=== PATIENT | female | born 1970 | race Caucasian/White ===

== ENCOUNTER → 2018-02-05 | Outpatient (CLI) | payer OTHER | LOC: BMCIMAGING 15:20 | PROVIDERS: ATTEND Orthopaedic Surgery | DX: R22.41 Localized swelling, mass and lump, right lower limb (principal); M71.21 Synovial cyst of popliteal space [Baker], right knee ==

== ENCOUNTER 2018-05-23 12:05 | Emergency (ER) | payer OTHER ==
--- NOTE | 2018-05-23 12:54 | EDPHY ---
H & P Stated Complaint: nontraumtic swelling r knee has surg scheduled for 06/04 Time Seen by Provider: 05/23/18 12:54 HPI/ROS: CHIEF COMPLAINT: Right knee pain HISTORY OF PRESENT ILLNESS: The patient presents to the ED with complaints of right knee pain and a painful effusion. The patient has a history of early osteoarthritis and is scheduled to get knee replacement done on June 04. The patient's symptoms began simply after walking today. The patient denies any fever. The pain is unrelieved with Advil and Motrin. REVIEW OF SYSTEMS: A comprehensive 10 point review of systems is otherwise negative aside from elements mentioned in the history of present illness. Source: Patient - Personal History LMP (Females 10-55): Post Menopausal Current Tetanus Diphtheria and Acellular Pertussis (TDAP): Yes - Medical/Surgical History Hx Asthma: No Hx Chronic Respiratory Disease: No Hx Diabetes: No Hx Cardiac Disease: No Hx Renal Disease: No Hx Cirrhosis: No Hx Alcoholism: No Hx HIV/AIDS: No Hx Splenectomy or Spleen Trauma: No Other PMH: PMH: Bulging disk c6-7, thyroid, anxiety/r knee pain - Social History Smoking Status: Never smoked - Physical Exam Exam: General Appearance: Alert, no distress Eyes: Pupils equal and round no pallor or injection ENT, Mouth: Mucous membranes moist Respiratory: There are no retractions, lungs are clear to auscultation Cardiovascular: Regular rate and rhythm Gastrointestinal: Abdomen is soft and nontender, no masses, bowel sounds normal Neurological: 5/5 strength all 4 extremities Skin: Warm and dry, no rashes Musculoskeletal: Neck is supple nontender Extremities: Suprapatella bursa effusion Constitutional: Initial Vital Signs Temperature (C) 36.4 C 05/23/18 12:18 Heart Rate 66 05/23/18 12:18 Respiratory Rate 18 05/23/18 12:18 Blood Pressure 109/83 H 05/23/18 12:18 O2 Sat (%) 98 05/23/18 12:18 O2 Delivery Mode Room Air Allergies/Adverse Reactions: No Known Allergies Allergy (Verified 05/23/18 12:18) Home Medications: Medication Instructions Recorded Acetaminophen [Tylenol ES 500 mg 1,000 mg PO BID 05/17/18 (*)] Ibuprofen [Motrin (*)] 800 mg PO BID 05/17/18 Levothyroxine [Synthroid 88 mcg 88 mcg PO DAILY06 05/17/18 (*)] Medical Decision Making Procedures: Procedure: Suprapatellar bursa aspiration and Marcaine infusion Under sterile conditions the right knee was prepped and draped. Local anesthesia was provided using lidocaine with epinephrine. A 18 gauge needle was used to aspirate the bursa. The bursa aspirate was bloody. It was sent for culture. 5 cc of 1% Marcaine without epinephrine was then injected into the space. The patient had immediate improvement of her pain. An Gera wrap is been applied. ED Course/Re-evaluation: The patient presents to the ED with a symptomatic effusion involving her right suprapatellar bursa. She is scheduled to undergo knee arthroplasty on June 04. I did curbside her orthopedic surgeon Dr. Kash Teixeira. The patient did have a therapeutic aspiration of her suprapatellar bursa. It was bloody. It has been sent for culture. The patient's suprapatellar bursa and intra-articular space were injected with Marcaine. Procedure was performed under sterile conditions. - Data Points Medications Given: Discontinued Medications Oxycodone/Acetaminophen (Percocet 5/325) 2 tab PO EDNOW ONE Stop: 05/23/18 13:19 Last Admin: 05/23/18 13:21 Dose: 2 tab Departure - Departure Disposition: Home, Routine, Self-Care Clinical Impression: Suprapatellar bursitis of right knee Condition: Good Instructions: Knee Bursitis (ED) Additional Instructions: 1. Follow up with Dr. Kash Teixeira as scheduled. 2. Continue Tylenol and ibuprofen for pain management. 3. Return to the ED for any severe pain, worsening symptoms or other concerns. 4. Wear Gera wrap for next 2 days. Referrals: MIGEL COURTNEY SMELTER OPERATOR [Primary Care Provider] - As per Instructions
[2018-05-23] MEDS ORDERED: OXYCODONE/APAP 5/325 TAB PO ONE (13:18)
[2018-05-23 14:10] VITALS: BP 112/85
== END 2018-05-23 14:43 | disposition home or self-care (01) ==
DX: M70.51 Other bursitis of knee, right knee (principal)

== ENCOUNTER 2018-06-04 07:57 | Observation (INO) | payer OTHER ==
--- NOTE | 2018-06-03 13:57 | GHP ---
DATE OF ADMISSION: 06/04/2018 HISTORY: The patient is a 47-year-old female who presents with right knee tricompartment arthritis. The knee has a complex history. She has had a previous patellar tendon autograft ACL reconstruction of the knee that failed. She has had a few knee scopes. By arthroscopic inspection and MRI, she chaney s severe tricompartment arthritis at this point, grade 3-4 medially and grade 2-3 in the other compar tments. She has pain, swelling, abnormalities of her gait, limitations of activities of daily living and certainly any athletic activity. She also has been prone to recurrent knee hemarthrosis. She h as in addition had multiple conservative measures, including bracing, modification of her activities, medications, including ointments, viscosupplementation, as well as bracing. Though she is aware leo t this is a relatively young age for a knee replacement, it is her best option in terms of quality of life and management of her function and comfort. She would like to proceed with a right total knee arthroplasty. PAST MEDICAL HISTORY: Remarkable for hypothyroid for which she uses levothyroxine 88 mcg daily. She also was using a Voltaren topical NSAID. She does have a history of lower extremity blood clot for which she was briefly anticoagulated years ago. PAST SURGICAL HISTORY: Her surgical history, includes the right ACL back in 1993. She has had right knee scope, right hip procedures, as well as a left knee scope. ALLERGIES: She has no known drug allergies. SOCIAL HISTORY: She is a nonsmoker. REVIEW OF SYSTEMS: Positive for hypothyroid. Also positive for lower extremity blood clot without p ulmonary embolus. PHYSICAL EXAM: GENERAL: The patient is a well-developed, well-nourished female in no apparent distr ess. HEAD: Normocephalic, atraumatic. CHEST: Clear. CARDIOVASCULAR: Regular rate and rhythm. A BDOMEN: Soft. NEUROLOGIC: She is alert and oriented x3. EXTREMITIES: Examination of the right kn ee shows a slight flexion contracture, she is bending to about 100 degrees. She has varus malalignme nt. She has ligamentous laxity, including ACL and pseudolaxity medially. She has joint line tendern ess throughout. Her skin is intact. Her neurovascular exam is intact. IMAGING: X-rays show tricompartment arthritis with decreased joint space, degenerative lipping. She is in varus malalignment and the majority of her arthritis is the medial compartment. She does have retained hardware including a metallic screw in the tibia and femur for previous ACL. IMPRESSION: Right knee tricompartment osteoarthritis. PLAN: Right total knee arthroplasty. Benefits and risks of surgery been reviewed. She understands that these risks, include infection, damage to blood vessel or nerve, failure or loosening of compone nts and need for revision, blood clot in the leg or lungs, bleeding and need for transfusion. She chaney s signed a consent form and she wishes to proceed. /[id number]/MODL
[~2018-06-04 07:57] MED LIST: POVIDONE-IODINE 20 ML in SODIUM CL IRRIG SOLUTION 500 ML IRR ONE; ROPIVACAINE 0.2% 80 MG, EPINEPHrine 0.2 MG, KETOROLAC TROMETHAMINE 30 MG in SYRINGE 0 ML IU ONE; TRANEXAMIC ACID 1,000 MG in NS 100 ML IV ONE
[2018-06-04] MEDS ORDERED: DEXAMETHASONE 4 MG/ML VIAL IVP ONE (08:07)
[2018-06-04] MEDS ORDERED: FAMOTIDINE 20 MG TAB PO ONE (08:07)
[2018-06-04] MEDS ORDERED: ACETAMINOPHEN 325 MG TAB PO ONE (08:07)
[2018-06-04] MEDS ORDERED: GABAPENTIN 300 MG CAP PO ONE (08:07)
[2018-06-04] MEDS ORDERED: ONDANSETRON 4 MG/2 ML VIAL IVP ONE (08:07)
[2018-06-04] MEDS ORDERED: ceFAZolin 2 GM/DEXTROSE 100 ML IV ONE (08:07)
[2018-06-04] MEDS ORDERED: LR 1,000 ML IV ONE (08:12)
[2018-06-04] MEDS ORDERED: ceFAZolin 1 GM/5 ML SYR ONE ×2 (09:36→09:48)
--- NOTE | 2018-06-04 09:44 | PDANEPAE ---
ANE History of Present Illness OA here for R TKA ANE Past Medical History - Cardiovascular History Hx Hypertension: No Hx Arrhythmias: No Hx Chest Pain: No Hx Coronary Artery / Peripheral Vascular Disease: No Hx CHF / Valvular Disease: No Hx Palpitations: No - Pulmonary History Hx COPD: No Hx Asthma/Reactive Airway Disease: No Hx Recent Upper Respiratory Infection: No Hx Oxygen in Use at Home: No Hx Sleep Apnea: No Sleep Apnea Screening Result - Last Documented: Negative - Neurologic History Hx Cerebrovascular Accident: No Hx Seizures: No Hx Dementia: No - Endocrine History Hx Diabetes: No Endocrine History Comment: hypothyroid - Renal History Hx Renal Disorders: No - Liver History Hx Hepatic Disorders: No - Neurological & Psychiatric Hx Hx Neurological and Psychiatric Disorders: Yes Neurological / Psychiatric History Comment: mild anxiety - Cancer History Hx Cancer: No - Congenital Disorder History Hx Congenital Disorders: No - GI History Hx Gastrointestinal Disorders: No - Other Health History Other Health History: dermatitis on face - Chronic Pain History Chronic Pain: Yes (knees) - Surgical History Prior Surgeries: right knee scopes, ACL replacement. left knee microfracture. right hip labral tear repair ANE Review of Systems Review of Systems: - Exercise capacity METS (RN): 6 METS ANE Patient History - Allergies Allergies/Adverse Reactions: No Known Allergies Allergy (Verified 05/23/18 12:18) - Home Medications Home Medications: Acetaminophen [Tylenol ES 500 mg (*)] 1,000 mg PO BID 05/17/18 [Last Taken 06/04 04:00] Ibuprofen [Motrin (*)] 800 mg PO BID 05/17/18 [Last Taken 05/24/18] Levothyroxine [Synthroid 88 mcg (*)] 88 mcg PO DAILY06 05/17/18 [Last Taken 04:00] - NPO status NPO Status: no food or drink >8 hours NPO Since - Liquids (Date): 06/04/18 NPO Since - Liquids (Time): 05:30 NPO Since - Solids (Date): 06/03/18 NPO Since - Solids (Time): 19:00 - Anes Hx Anes Hx: no prior problems - Smoking Hx Smoking Status: Never smoked - Alcohol Use Alcohol Use: Rarely - Family Anes Hx Family Anes Hx: none Family Hx Anesthesia Complications: none ANE Labs/Vital Signs - Vital Signs Vital Signs: reviewed preoperatively; see RN documention for details Blood Pressure: 103/67 Heart Rate: 50 Respiratory Rate: 14 O2 Sat (%): 94 Height: 165.1 cm Weight: 54.431 kg ANE Physical Exam - Airway Neck exam: FROM Mallampati Score: Class 2 Mouth exam: normal dental/mouth exam - Pulmonary Pulmonary: no respiratory distress, clear to auscultation - Cardiovascular Cardiovascular: regular rate and rhythym, no murmur, rub, or gallop - ASA Status ASA Status: II ANE Anesthesia Plan Anesthesia Plan: GA with mask, spinal Regional Anesthesia: single shot NB, adductor canal FNB Total IV Anesthesia: Yes
[2018-06-04] MEDS ORDERED: MIDAZOLAM 2 MG/2 ML VIAL IVP ONE (09:45)
[2018-06-04] MEDS ORDERED: MIDAZOLAM 2 MG/2 ML VIAL ONE (09:49)
[2018-06-04] MEDS ORDERED: PROPOFOL/EMULSION 500 MG/50 ML BOTTLE IV ONE ×2 (09:51→10:38)
[2018-06-04] MEDS ORDERED: fentaNYL 100 MCG/2 ML INJ IVP PRN ×2 (12:09→15:28)
[2018-06-04] MEDS ORDERED: oxyCODONE IR 5 MG TAB PO PRN ×3 (12:09→15:28)
[2018-06-04] MEDS ORDERED: NALOXONE HCL 0.4 MG/ML INJ IVP PRN ×2 (12:09→15:28)
[2018-06-04] MEDS ORDERED: ONDANSETRON 4 MG/2 ML VIAL IVP PRN ×3 (12:09→15:28)
[2018-06-04] MEDS ORDERED: HYDROmorphONE/DILAUDID 2 MG/ML INJ IVP PRN ×2 (12:09→15:28)
[2018-06-04] MEDS ORDERED: ACETAMINOPHEN 500 MG TAB PO PRN ×2 (12:09→15:28)
[2018-06-04] MEDS ORDERED: HYDROCODONE/APAP 5/325 TAB PO PRN ×2 (12:09→15:28)
--- NOTE | 2018-06-04 12:12 | PDHPUP ---
History & Physical Update H&P update statement: This history and physical update is based on an assessment of the patient which was completed after admission or registration (within 24 hours), but prior to the surgery/procedure. H&P update: no change in patient's condition since H&P completed (no change)
--- NOTE | 2018-06-04 12:19 | POSTANESTH ---
Post Anesthetic Evaluation Cardiovascular Status: Normal, Stable, Similar to Pre-Op Cond Respiratory Status: Normal, Stable, Similar to Pre-op Cond. Level of Consciousness/Mental Status: Can Participate in Eval, Alert and Oriented Pain Control: Adequate, Prn Tx Ordered Nausea/Vomiting Control: Adequate, Prn Tx Ordered Complications Possibly Related to Anesthesia: None Noted
[2018-06-04] MEDS ORDERED: ONDANSETRON DISINTEGRATING 4 MG TAB PO PRN (12:20)
[2018-06-04] MEDS ORDERED: METOCLOPRAMIDE 10 MG/2 ML VIAL IVP PRN (12:20)
[2018-06-04] MEDS ORDERED: DIPHENOXYLATE/ATROPINE LOMOTIL 1 TAB PO PRN (12:20)
[2018-06-04] MEDS ORDERED: BISACODYL 10 MG SUPP PR PRN (12:20)
[2018-06-04] MEDS ORDERED: POLYETHYLENE GLYCOL 3350 17 GM PKT PO PRN (12:20)
[2018-06-04] MEDS ORDERED: LACTULOSE 20 GM/30 ML UDCUP PO PRN (12:20)
[2018-06-04] MEDS ORDERED: CYCLOBENZAPRINE 10 MG TAB PO PRN (12:20)
[2018-06-04] MEDS ORDERED: MAGNESIUM HYDROXIDE 30 ML UDCUP PO PRN (12:20)
[2018-06-04] MEDS ORDERED: PROMETHAZINE HCL 25 MG SUPPR PR PRN (12:20)
[2018-06-04] MEDS ORDERED: diphenhydrAMINE 25 MG CAP PO PRN (12:20)
[2018-06-04] MEDS ORDERED: KETOROLAC 15 MG/1 ML SDV IVP ONE (12:20)
[2018-06-04] MEDS ORDERED: PROMETHAZINE HCL 25 MG/ML INJ IVP PRN ×2 (12:20→15:28)
[2018-06-04] MEDS ORDERED: TEMAZEPAM 15 MG CAP PO PRN (12:20)
[2018-06-04] MEDS ORDERED: LR 1,000 ML IV SCH (12:30)
--- NOTE | 2018-06-04 12:55 | GOP ---
DATE OF OPERATION: 06/04/2018 SURGEON: Kash Teixeira MD INTEGRATED MARKETING MANAGER: Rory Crouch, MIKE, LSA. ANESTHESIOLOGIST: Dr. Luis Farooq PREOPERATIVE DIAGNOSIS: Right knee osteoarthritis. POSTOPERATIVE DIAGNOSIS: Right knee osteoarthritis. PROCEDURE PERFORMED: Right total knee arthroplasty. FINDINGS: INDICATIONS: The patient is a 47-year-old female with complex right knee history including previous ACL injury and reconstruction, failure of that graft, a number of arthroscopies, her knee has advance d unfortunately into severe tricompartment osteoarthritis. She has had viscosupplementation, she has had day care director bracing, she has had exercises and physical therapy has maintained her fitness level bu t has significant impact on her quality of life. At this point, she has pain, swelling, recurrent he marthrosis, limping, gait abnormalities, limitation of motion, and she is also in varus malalignment. A right total knee arthroplasty is planned. DESCRIPTION OF PROCEDURE: The patient was taken to the operating room, and seated on the OR table, Mj Farooq provided a spinal block. She received 2 g of IV Ancef. She received tranexamic acid. She received IV sedation, in the supine position and a rolled towel beneath the right hip to neutralize r otation. The right leg was prepped and draped thoroughly with chlorhexidine. The limb was elevated, exsanguinated, the tourniquet inflated to 275 mmHg. I made an incision line in the midline utilizin g distally a previous incision for her ACL. I made a medial parapatellar arthrotomy. It was readily evident that this knee was severely arthritic, [id number] medially, had significant osteophytes th roughout and hemosiderin and significant synovitis. No signs of infection and of note, a previous as piration of the knee had negative culture results. I inverted the patella, I resected 9 mm of cartil age and bone and sized the patella at a 35, drilled peg holes, and the trial component and her nenana patella reconstituted her normal patellar thickness. Osteophytes were trimmed so as to not overhang the dimensions of the patellar component. The patella was inverted. The knee was flexed. I drille d a pilot plant operator hole in the distal femur using an intramedullary device on the femur. She had a slight fle xion contracture, so I cut an extra +2 bone, 5 degree valgus cut as a nice flat surface. From the olmos rface, I measured with the spacer to roberto the tibia with the knee extended for measuring and estimati ng my tibial cut. I then sized the femur, it was between a 5 and a 6 and I downsized to a 5. I adva nced the block anteriorly to avoid notching and I completed the anterior, posterior and chamfer cuts and the notch cuts for this bi-cruciate stabilized knee, and the size 5 component was a good fit. I placed a posterior and lateral retractor. I used my previous robetro as described above and went a sergio le bit shy of that to preserve as much bone as I could and made a good perpendicular cut with the chary ropriate slope. I sized this to a 4. I used my trial components to dial in rotation. A previous AC L screw I knew would be obstructing my central post for the tibial component, so when I pre-drilled f or the post I contacted the screw. I made a small drill hole in the anterior cortex so I could push the screw into the medullary canal and it was pulled up through the canal. I finished prepping the t ibial surface including dialing in my cruciate punch in rotation. All the surfaces were prepped with jet lavage antibiotics. All the components were cemented, the tibia 1st size 4, the femoral compone nt, size 5, and the 35 mm patellar component. Once the cement hardened, I did trial reductions, I fo und that a size 11 crosslink poly spacer allowed her full extension, excellent ligament stability, go od rollback in flexion. This was snapped into the tibial tray. The tourniquet was let down after ab out an hour and 15 minutes. She received her 2nd dose of tranexamic acid. I irrigated with Betadine rinse and antibiotic saline. Hemostasis was achieved with cautery of small vessels. I repaired the arthrotomy using interrupted [id number] sutures of 0 [place], subcutaneous tissue with 2-0 Mo nocryl, and the skin with neda. There were no complications. Estimated blood loss was minimal. No drains. Specimens include the bone fragments removed and prepping the bone. All counts were larry ect and the patient was taken in stable condition to recovery. My surgical device sales representative, Rory Crouch, was a medical necessity to achieve this total knee replacement . SUMMARY OF COMPONENTS: This is a [employer] knee, bi-cruciate stabilized Oxinium femur , crosslink poly tibial tray, all components cemented. Femur size 5, tibia size 4, patella 35, artic ular tray is 11 mm thick. /[id number]/MODL
[2018-06-04] MEDS ORDERED: DIAZEPAM 5 MG/ML 1 ML SYR IVP PRN (15:28)
[2018-06-04] MEDS: KETOROLAC 15 MG/1 ML SDV IVP SCH ×2 (16:48→22:28)
[2018-06-04] MEDS: ceFAZolin 2 GM/DEXTROSE 100 ML IV SCH (17:12)
[2018-06-04] MEDS: ACETAMINOPHEN 325 MG TAB PO SCH ×2 (17:12→23:20)
[2018-06-04] MEDS: oxyCODONE IR 5 MG TAB PO PRN ×2 (17:14→22:29)
[2018-06-04] MEDS: SENNOSIDES/DOCUSATE SODIUM TAB PO SCH (20:10)
[2018-06-04] MEDS: FAMOTIDINE 20 MG TAB PO SCH (20:10)
[2018-06-04] MEDS: ASPIRIN 325 MG TAB PO SCH (20:12)
[2018-06-05] MEDS: ceFAZolin 2 GM/DEXTROSE 100 ML IV SCH (02:45)
[2018-06-05] MEDS: oxyCODONE IR 5 MG TAB PO PRN ×4 (02:45→17:51)
[2018-06-05] MEDS: KETOROLAC 15 MG/1 ML SDV IVP SCH ×2 (04:22→09:17)
[2018-06-05] MEDS: ACETAMINOPHEN 325 MG TAB PO SCH ×3 (05:03→17:50)
[2018-06-05] MEDS ORDERED: LEVOTHYROXINE 88 MCG TAB PO SCH (06:00)
--- NOTE | 2018-06-05 08:29 | SOAPPROG ---
SHERI Progress Note Assessment/Plan: Assessment: 06/05/18 POD#1 R TKA, pain mod, xray fine, Hct 31, has been up Plan: 06/05/18 08:27 PT/OT, home, oxy, tyl, celebrex, asa 325, has PT set up [facility] PT Objective: Vital Signs Temp Pulse Resp BP Pulse Ox 36.6 C 55 L 14 91/60 L 96 06/05/18 07:55 06/05/18 07:55 06/05/18 07:55 06/05/18 07:55 06/05/18 07:55 Laboratory Results 06/05/18 04:25 06/04/18 06/05/18 06/06/18 05:59 05:59 05:59 Intake Total 1672 Output Total 2500 1 Balance -828 -1 ICD10 Worksheet Patient Problems: Problems Problem Status Onset Osteoarthritis of right knee Acute - ICD10 Problem Qualifiers (1) Osteoarthritis of right knee
[2018-06-05] MEDS: ASPIRIN 325 MG TAB PO SCH (09:08)
[2018-06-05] MEDS: FAMOTIDINE 20 MG TAB PO SCH (09:08)
[2018-06-05] MEDS: SENNOSIDES/DOCUSATE SODIUM TAB PO SCH (09:08)
--- NOTE | 2018-06-05 10:26 | ASMTCMCOM ---
CM Note CM Note Notes: Patient is POD #1 R TKA. She is doing well and ready for d/c. She lives with her and has outpatient PT scheduled with [facility]. No other needs identified. Date Signed: 06/05/2018 10:25 AM Electronically Signed By:Maria Dolores Moran RN
--- NOTE | 2018-06-05 10:43 | ASMTLACE ---
ALEXANDRO Length of stay for Answers: 2 days current admission Acuity / Level of Answers: No Care: Did the patient have an inpatient admission? Comorbidities - select Answers: Opioid dependence all that apply / Chronic pain Other Notes: Hypothyroid; DVT # of Emergency department Answers: 1-2 visits in the last 6 months Social determinants Answers: Mental health diagnosis (anxiety, depression, pers onality disorders, etc.) Score: 11 Date Signed: 06/05/2018 10:43 AM Electronically Signed By:Jessica Pacheco
[2018-06-05 12:33] VITALS: BP 92/59
--- NOTE | 2018-06-05 15:35 | ASDISCHSUM ---
Discharge Information Plan Status:Home with No Needs Medically Cleared to Leave:06/05/2018 Discharge Date:06/05/2018 CM D/C Disposition:Home, Routine, Self-Care ADT D/C Disposition:Home, Routine, Self-Care Projected Discharge Date:06/05/2018 04:00 PM Transportation at D/C:Family Discharge Delay Reason: Follow-Up Date:06/05/2018 04:00 PM Discharge Slot:2 - 12:01 pm - 18:00 pm Final Diagnosis:R TKA Placement Information Patient Contact Information Contact Name:SHELLI Relationship: Address:[address] City:[place] Alternate Phone: [facility]/Zip Code:[place] [address] Email: Financial Information Financial Class:BCOP Primary Plan Desc:RAHUL JOYCE PPO [employer] Primary Plan Number:[id number] Secondary Plan Desc: Secondary Plan Number: Assessment Information [facility] CM Progress Note CM Note CM Note Notes: Patient is POD #1 R TKA. She is doing well and ready for d/c. She lives with her and has outpatient PT scheduled with [facility]. No other needs identified. Date Signed: 06/05/2018 10:25 AM Electronically Signed By:Maria Dolores Moran RN LACE ALEXANDRO Length of stay for Answers: 2 days current admission Acuity / Level of Answers: No Care: Did the patient have an inpatient admission? Comorbidities - select Answers: Opioid dependence all that apply / Chronic pain Other Notes: Hypothyroid; DVT # of Emergency department Answers: 1-2 visits in the last 6 months Social determinants Answers: Mental health diagnosis (anxiety, depression, pers onality disorders, etc.) Score: 11 Date Signed: 06/05/2018 10:43 AM Electronically Signed By:Jessica Pacheco Case Management Discharge Plan Note Case Management Discharge Discharge Order Complete? Answers: Yes Patient to Obtain Answers: via Family Medications Transportation Arranged Answers: Family/Friends Transport will Pick (Date 06/05/2018 04:00 PM & Time) Family Notified Answers: Yes Notes: Family to transport Discharge Comments Notes: Patient has been discharged. To go to out-pt therapy. Lives with . Date Signed: 06/05/2018 03:33 PM Electronically Signed By:Nakia Peterson LCSW Intervention Information
== END 2018-06-05 18:04 | disposition home or self-care (01) ==
LOC: F3N 07:57 → EDSTATUS 09:30 → F3N 14:22
PROVIDERS: ADMIT Orthopaedic Surgery; ATTEND Orthopaedic Surgery
PROC: 0SRC0JZ Replacement of Right Knee Joint with Synthetic Substitute, Open Approach (ICD-10-PCS; principal; 2018-06-04 09:30)
DX: M17.11 Unilateral primary osteoarthritis, right knee (principal); M11.261 Other chondrocalcinosis, right knee; E03.9 Hypothyroidism, unspecified
CPT/HCPCS: 27447; 73560; 97116; 97161; 97165; 97530; G0378; C1713; J0171; J0690; J1100; J1885; J2250; J2270; J2405; J2704; J2795

== ENCOUNTER 2018-09-24 07:57 | Observation (INO) | payer OTHER ==
--- NOTE | 2018-09-23 11:50 | GHP ---
[f rep st] PREOP HISTORY AND PHYSICAL DATE OF ADMISSION: 09/24/2018 HISTORY: The patient was a 47-year-old female who presents with severe left knee osteoarthritis. Th is knee has a long history. She presents with chronic pain, swelling, loss of motion and function. She has had a knee arthroscopy. She has had multiple rounds of knee injections. She has had an unlo ader brace for her medial compartment. She has tried appropriate physical therapy and exercises. Sh eriberto presents with knee stiffness, swelling, gait abnormalities. She is limping and has limitations not only of exercise, but activities of daily living. She has had a successful total knee replacement s o far, her opposite knee, she now wishes to proceed with a left total knee arthroplasty. The left kn ee x-rays show tricompartment osteoarthritis, decreased joint space, large bony osteophytes, varus ma lalignment. She also has varus thrust while she is walking. PAST MEDICAL HISTORY: She is hypothyroid. She has had a blood clot in her right lower extremity, no t a PE. Had no problems with her right total knee. She has had left and right knee procedures, mult iple. She has had a right hip procedure. ALLERGIES: She has no known drug allergies. MEDICATIONS: She is using levothyroxine 88 mcg daily, Voltaren gel, and Ativan. SOCIAL HISTORY: She is a nonsmoker. REVIEW OF SYSTEMS: Positive for hypothyroid. PHYSICAL EXAM: GENERAL: A well-developed, well-nourished female in no apparent distress. HEAD AND NECK: Normocephalic, atraumatic. CHEST: Clear. CARDIOVASCULAR: Regular rate and rhythm. ABDOMEN : Soft. NEUROLOGIC: She is alert and oriented x3. EXTREMITIES: Examination of her left knee show s a flexion contracture. She has varus malalignment, small effusion. She has diffuse joint line ten derness, especially on the medial side. SKIN: Intact. NEUROVASCULAR: Intact. IMPRESSION: Left knee osteoarthritis. PLAN: Left total knee arthroplasty. The benefits and risks of surgery have been reviewed with the honorio etienne. She understands that the risks, include infection, damage to blood vessel or nerve, failure or loosening of components and need for revision, blood clot in the leg or lungs, bleeding and need f or transfusion. She understands that at her relatively young age, she has a higher likelihood of nee ding a revision of this knee arthroplasty. She has signed a consent form and wishes to proceed. /[id number]/MODL
[~2018-09-24 07:57] MED LIST changes: +ceFAZolin 1 GM/5 ML SYR ONE
[2018-09-24] MEDS ORDERED: ONDANSETRON 4 MG/2 ML VIAL IVP ONE (08:09)
[2018-09-24] MEDS ORDERED: ACETAMINOPHEN 325 MG TAB PO ONE (08:09)
[2018-09-24] MEDS ORDERED: FAMOTIDINE 20 MG TAB PO ONE (08:09)
[2018-09-24] MEDS ORDERED: ceFAZolin 2 GM/DEXTROSE 100 ML IV ONE (08:09)
[2018-09-24] MEDS ORDERED: GABAPENTIN 300 MG CAP PO ONE (08:09)
[2018-09-24] MEDS ORDERED: DEXAMETHASONE 4 MG/ML VIAL IVP ONE (08:09)
[2018-09-24] MEDS ORDERED: LR 1,000 ML IV ONE (08:10)
[2018-09-24] MEDS ORDERED: MIDAZOLAM 2 MG/2 ML VIAL IVP ONE (10:52)
--- NOTE | 2018-09-24 10:52 | PDANEPAE ---
ANE History of Present Illness 47 yo for tka ANE Past Medical History - Cardiovascular History Hx Hypertension: No Hx Arrhythmias: No Hx Chest Pain: No Hx Coronary Artery / Peripheral Vascular Disease: No Hx CHF / Valvular Disease: No Hx Palpitations: No - Pulmonary History Hx COPD: No Hx Asthma/Reactive Airway Disease: No Hx Recent Upper Respiratory Infection: No Hx Oxygen in Use at Home: No Hx Sleep Apnea: No Sleep Apnea Screening Result - Last Documented: Negative - Neurologic History Hx Cerebrovascular Accident: No Hx Seizures: No Hx Dementia: No - Endocrine History Hx Diabetes: No Endocrine History Comment: hypothyroid - Renal History Hx Renal Disorders: No - Liver History Hx Hepatic Disorders: No - Neurological & Psychiatric Hx Hx Neurological and Psychiatric Disorders: Yes Neurological / Psychiatric History Comment: mild anxiety - Cancer History Hx Cancer: No - Congenital Disorder History Hx Congenital Disorders: No - GI History Hx Gastrointestinal Disorders: No - Other Health History Other Health History: NONE - Chronic Pain History Chronic Pain: No - Surgical History Prior Surgeries: right knee scopes, ACL replacement. left knee microfracture. right hip labral tear [id number] ANE Review of Systems Review of Systems: - Exercise capacity METS (RN): 6 METS ANE Patient History - Allergies Allergies/Adverse Reactions: No Known Allergies Allergy (Verified 09/11/18 17:27) - Home Medications Home Medications: Levothyroxine [Synthroid 88 mcg (*)] 88 mcg PO DAILY06 05/17/18 [Last Taken 12/07 04:00] Cholecalciferol Vit D3 [Vitamin D3 (*)] 1,000 units PO DAILY 09/03/18 [Last Taken 09/17/18] Magnesium Oxide [Magnesium Oxide 400 mg (*)] 400 mg PO HS 09/03/18 [Last Taken 09/20/18] Ativan 1 mg 09/24/18 [Last Taken 09/23/18] - NPO status NPO Since - Liquids (Date): 09/24/18 NPO Since - Liquids (Time): 04:30 NPO Since - Solids (Date): 09/23/18 NPO Since - Solids (Time): 20:30 - Smoking Hx Smoking Status: Never smoked - Family Anes Hx Family Hx Anesthesia Complications: none ANE Labs/Vital Signs - Vital Signs Blood Pressure: 105/67 Heart Rate: 57 Respiratory Rate: 18 O2 Sat (%): 93 Height: 5 ft 5 in Weight: 52.163 kg ANE Physical Exam - Airway Neck exam: FROM Mallampati Score: Class 2 Mouth exam: normal dental/mouth exam - Pulmonary Pulmonary: no respiratory distress - Cardiovascular Cardiovascular: regular rate and rhythym - ASA Status ASA Status: II ANE Anesthesia Plan Anesthesia Plan: spinal Regional Anesthesia: single shot NB
[2018-09-24] MEDS ORDERED: PROPOFOL/EMULSION 500 MG/50 ML BOTTLE IV ONE ×2 (11:01→12:22)
[2018-09-24] MEDS ORDERED: ROPIVACAINE HCL 100 MG/20 ML INJ ONE (12:49)
[2018-09-24] MEDS ORDERED: NALOXONE HCL 0.4 MG/ML INJ IVP PRN (13:06)
[2018-09-24] MEDS ORDERED: HYDROmorphONE/DILAUDID 2 MG/ML INJ IVP PRN (13:06)
[2018-09-24] MEDS ORDERED: fentaNYL 100 MCG/2 ML INJ IVP PRN (13:06)
[2018-09-24] MEDS ORDERED: ONDANSETRON 4 MG/2 ML VIAL IVP PRN ×2 (13:06→13:25)
[2018-09-24] MEDS ORDERED: MAGNESIUM HYDROXIDE 30 ML UDCUP PO PRN (13:25)
[2018-09-24] MEDS ORDERED: METOCLOPRAMIDE 10 MG/2 ML VIAL IVP PRN (13:25)
[2018-09-24] MEDS ORDERED: TEMAZEPAM 15 MG CAP PO PRN (13:25)
[2018-09-24] MEDS ORDERED: PROMETHAZINE HCL 25 MG SUPPR PR PRN (13:25)
[2018-09-24] MEDS ORDERED: DIPHENOXYLATE/ATROPINE LOMOTIL 1 TAB PO PRN (13:25)
[2018-09-24] MEDS ORDERED: diphenhydrAMINE 25 MG CAP PO PRN (13:25)
[2018-09-24] MEDS ORDERED: ONDANSETRON DISINTEGRATING 4 MG TAB PO PRN (13:25)
[2018-09-24] MEDS ORDERED: PROMETHAZINE HCL 25 MG/ML INJ IVP PRN (13:25)
[2018-09-24] MEDS ORDERED: LACTULOSE 20 GM/30 ML UDCUP PO PRN (13:25)
[2018-09-24] MEDS ORDERED: POLYETHYLENE GLYCOL 3350 17 GM PKT PO PRN (13:25)
[2018-09-24] MEDS ORDERED: CYCLOBENZAPRINE 10 MG TAB PO PRN (13:25)
[2018-09-24] MEDS ORDERED: BISACODYL 10 MG SUPP PR PRN (13:25)
[2018-09-24] MEDS ORDERED: LR 1,000 ML IV SCH (13:30)
[2018-09-24] MEDS ORDERED: KETOROLAC 15 MG/1 ML SDV IVP ONE (13:30)
--- NOTE | 2018-09-24 14:06 | GOP ---
[f rep st] OPERATIVE REPORT DATE OF OPERATION: 09/24/2018 SURGEON: Kash Teixeira MD FEE CLERK: Rory Crouch, CSFA, LSA. ANESTHESIA: Dr. Eric Soler MD. PREOPERATIVE DIAGNOSIS: Left knee osteoarthritis. POSTOPERATIVE DIAGNOSIS: Left knee osteoarthritis. PROCEDURE PERFORMED: Left total knee arthroplasty. FINDINGS: SPECIMENS: Include excised bone. ESTIMATED BLOOD LOSS: About 30 cc. INDICATIONS: Ashlee is a 47-year-old female who presents with severe end-stage tricompartment osteoa rthritis. She has tried all appropriate conservative measures to manage her knee. She has progressi vely become limited in function and comfort with her knee. She has tricompartment osteoarthritis, richard ne-to-bone medial compartment, large osteophytes throughout. DESCRIPTION OF PROCEDURE: The patient was taken to the operating room and a spinal anesthetic was ad ministered by Dr. Soler. She received 2 g of IV Ancef and tranexamic acid. She received IV sedat ion. A blanket beneath the left hip neutralized irritation and the left leg in its entirety prepped and draped free with chlorhexidine. The limb was elevated, exsanguinated, the tourniquet inflated to 275 mmHg. I made a longitudinal incision in the midline, I used a medial parapatellar arthrotomy. I inverted the patella, measured its thickness and removed 9 mm of cartilage and bone and sized the p atella at a 35. I drilled the appropriate PEG holes for the implant. The combination of the trial a nd her [place] patella restored her patellar thickness. I did some lateral release work to untether t he lateral retinaculum. The knee was flexed. I drilled a pilot can router hole for an intramedullary femoral r od. I used a 5-degree valgus cut +2 for her flexion contracture. I made a good distal flat saw cut. Off this, I measured the size between a 5 and 6, downsized to a 5, moved the cutting blocks a bit a nterior to avoid notching and completed the anterior, posterior and chamfer cuts as well as the notch cuts for this bicruciate stabilized knee. The size 5 component fit very nicely. I used an extramed ullary device on the tibia. I dialed in the rotation, posterior slope and the amount of bone resecti on to accommodate the more worn medial side. A flat saw cut was made. I sized this at a 4. I diale d in the rotation and completed the tibial prep. All the surfaces were jet lavaged with antibiotic i rrigation. All components were cemented, 1st tibia, femur, then patella. While the cement hardened, I infiltrated a joint cocktail throughout the soft tissues around the knee. I did a series of trial reductions with different liners. I found that a size 11 liner allowed full extension, full rollbac k and good collateral tension and stability. The crosslink poly 11 mm liner tray was placed. I irri gated with Betadine solution and then antibiotic. The arthrotomy was closed with interrupted 0 Mersi hermila sutures. The subcutaneous tissue was closed with 2-0 Monocryl, the skin was closed with a 3-0 S tratafix subcuticular quilled suture. I used a little tissue glue, Steri-Strips, 4x4s, sterile Webri l, and an Gera wrap was applied. The total tourniquet time was about an hour and 5 minutes. There we re no complications. DRAINS: No drains. COUNTS: All counts were correct. The patient was taken in stable condition to recovery. My pathologist assistant was a medical necessity to provide leg positioning and soft tissue retraction t o achieve this total knee replacement. SUMMARY OF COMPONENTS: This is a [employer] knee. It is bicruciate stabilized Oxinium femur, and all components cemented. Femur is size 5, tibia size 4, the patella 35, and the articula r tray 11 mm thick. /[id number]/MODL
--- NOTE | 2018-09-24 15:10 | POSTANESTH ---
Post Anesthetic Evaluation Cardiovascular Status: Normal, Stable Respiratory Status: Normal, Stable Level of Consciousness/Mental Status: Can Participate in Eval Pain Control: Adequate, Prn Tx Ordered Nausea/Vomiting Control: Adequate, Prn Tx Ordered Complications Possibly Related to Anesthesia: None Noted
[2018-09-24] MEDS: oxyCODONE IR 5 MG TAB PO PRN ×3 (17:30→23:26)
[2018-09-24] MEDS: ACETAMINOPHEN 325 MG TAB PO SCH ×2 (17:31→23:26)
[2018-09-24] MEDS: ceFAZolin 2 GM/DEXTROSE 100 ML IV SCH (18:22)
[2018-09-24] MEDS: FAMOTIDINE 20 MG TAB PO SCH (20:35)
[2018-09-24] MEDS: ASPIRIN 81 MG CHEWABLE TAB PO SCH (20:35)
[2018-09-24] MEDS: SENNOSIDES/DOCUSATE SODIUM TAB PO SCH (20:37)
[2018-09-24] MEDS ORDERED: MAGNESIUM OXIDE 400 MG TAB PO SCH (21:00)
[2018-09-25] MEDS: ceFAZolin 2 GM/DEXTROSE 100 ML IV SCH (04:38)
[2018-09-25] MEDS: ACETAMINOPHEN 325 MG TAB PO SCH ×2 (06:00→12:33)
[2018-09-25] MEDS: oxyCODONE IR 5 MG TAB PO PRN ×3 (06:00→11:09)
[2018-09-25] MEDS ORDERED: LEVOTHYROXINE 88 MCG TAB PO SCH (06:00)
--- NOTE | 2018-09-25 07:54 | SOAPPROG ---
SOAP Progress Note Assessment/Plan: Assessment: 09/25/18 POD#1 L TKA, Hct 33, xray fine Plan: 09/25/18 07:52 PT and home, has PT set up outpatient, asa, tyl, oxy, celebrex Objective: Vital Signs Temp Pulse Resp BP Pulse Ox 36.8 C 52 L 16 89/65 L 95 09/25/18 04:00 09/25/18 04:00 09/25/18 04:00 09/25/18 04:00 09/25/18 04:00 Laboratory Results 09/25/18 04:29 09/24/18 09/25/18 09/26/18 05:59 05:59 05:59 Intake Total 3250 Output Total 2850 Balance 400 ICD10 Worksheet Patient Problems: Problems Problem Status Onset Osteoarthritis of right knee Acute
[2018-09-25 08:23] VITALS: BP 99/64
[2018-09-25] MEDS ORDERED: CHOLECALCIFEROL VIT D3 1,000 UNITS TAB PO SCH (09:00)
[2018-09-25] MEDS: FAMOTIDINE 20 MG TAB PO SCH (09:08)
[2018-09-25] MEDS: ASPIRIN 81 MG CHEWABLE TAB PO SCH (09:08)
[2018-09-25] MEDS: SENNOSIDES/DOCUSATE SODIUM TAB PO SCH (09:09)
--- NOTE | 2018-09-25 10:08 | ASMTLACE ---
LACE Length of stay for Answers: 2 days current admission Acuity / Level of Answers: No Care: Did the patient have an inpatient admission? Comorbidities - select Answers: Other Notes: Hypothyroid; DVT all that apply # of Emergency department Answers: 1-2 visits in the last 6 months Social determinants Answers: Mental health diagnosis (anxiety, depression, pers onality disorders, etc.) Score: 7 Date Signed: 09/25/2018 10:08 AM Electronically Signed By:LAQUITA Galdamez
--- NOTE | 2018-09-25 10:09 | ASMTCMCOM ---
CM Note CM Note Notes: Pt had planned TKA, resides with spouse. PT and MD rec outpatient PT, no CM d/c needs identified. Date Signed: 09/25/2018 10:08 AM Electronically Signed By:LAQUITA Galdamez
== END 2018-09-25 15:35 | disposition home or self-care (01) ==
LOC: F1N 07:57 → F3N 14:25
PROVIDERS: ADMIT Orthopaedic Surgery; ATTEND Orthopaedic Surgery
PROC: 0SRD0J9 Replacement of Left Knee Joint with Synthetic Substitute, Cemented, Open Approach (ICD-10-PCS; principal; 2018-09-24 10:30)
DX: M17.12 Unilateral primary osteoarthritis, left knee (principal); E03.9 Hypothyroidism, unspecified; Z86.718 Personal history of other venous thrombosis and embolism; Z96.651 Presence of right artificial knee joint
CPT/HCPCS: 27447; 73560; 97116; 97161; 97165; 97530; G0378; C1713; J0171; J0690; J1100; J1885; J2250; J2405; J2704; J2795